=== PATIENT | female | born 1995 | race Caucasian/White ===

== ENCOUNTER 2018-07-17 13:44 | Emergency (ER) | payer SELFPAY ==
[2018-07-17 13:51] VITALS: BP 140/109; PULSE 82; RESP 18; TEMP 36.7; O2SAT 98
--- NOTE | 2018-07-17 14:23 | ED.GENADUL_ITS ---
Discharge Plan Disposition Patient Disposition: HOME Condition: Good Discharge Details Chief Complaint: EarProblem Clinical Impression: URI (upper respiratory infection), Sinusitis ED Provider: Shon Lantigua Home Meds and New Rx's Prescriptions: New azithromycin 250 mg tablet See Label Instructions .ROUTE .COMPLEX Qty: 6 RF: 0 fluticasone [Flonase Allergy Relief] 50 mcg/actuation spray,suspension 1 spray LAILA DAILY Qty: 15.8 RF: 0 sodium chloride [Saline Mist] 0.65 % aerosol,spray 1 spray LAILA Q6H PRN PRN (Reason: dry nasal passages) Qty: 30 RF: 0 diphenhydramine HCl [Benadryl Allergy] 25 mg tablet 25 mg PO Q6H PRN (Reason: allergy symptoms) Qty: 7 RF: 0 albuterol sulfate 90 mcg/actuation HFA aerosol inhaler 1 puff IH Q6H PRN (Reason: shortness of breath or wheezing) Qty: 6.7 RF: 0 Discharge Instructions Instructions: Sinusitis (ED), Upper Respiratory Infection (ED) Additional Instructions: Please take the medication as directed. Please stop smoking. If you notice any worsening of your symptoms, or any new symptoms such as vomiting, diarrhea, fever, chills, shortness of breath, chest pain, numbness, weakness, or fainting , please return immediately to the emergency department for reevaluation. Please follow up with your primary care provider as soon as possible for reassessment and reevaluation. As always, it was a pleasure participating in your medical care today. Medical Decision Making This is a pleasant 23-year-old female who presents with 10 days of upper respiratory infection including congestion, mild cough, slight decrease in hearing in her right ear. Physical exam demonstrates no signs of tympanic membrane perforation however there is some notable fluid behind the tympanic membranes bilaterally, no signs of significant otitis media. Patient does have right-sided maxillary tenderness on percussion, she does smoke. Lung exam is clear, vital signs are normal. With the patient's current symptomatology I feel her symptoms most likely secondary to sinusitis, most likely secondary to initially a viral etiology but more likely a bacterial etiology with this extended course. We will give azithromycin, Decadron here, and then home use of an inhaler, nasal spray, nasal steroid spray, Benadryl. We discussed the importance of smoking cessation as well as red flags which to return. I have extensively reviewed the treatment plan and discharge instructions with the patient and their family. I have addressed all patient concerns at this time. The patient and family was made aware of what symptoms to monitor for that would warrant a return to the emergency department. Discussed the plan with the patient and family, they demonstrate verbal understanding and agreement with our assessment and plan at this time. HPI General Date/Time Provider Initiated Documentation: 07/17/18 14:07 . HPI Narrative: This is a pleasant 23-year-old female who presents with 10 days of congestion, slight decreased hearing in her right ear, cough, runny nose. She smokes regularly. She denies any chest pain or shortness of breath. She denies any productive sputum production. She denies any aggravating or relieving factors. She denies any arm pain numbness tingling fevers or chills. She does admit to some other sick contacts with similar upper respiratory-like symptoms including her significant other. She denies any history of facial surgeries. She denies any history of lung disease. She has no additional complaints at this time. She denies any recent surgeries. She denies any IV or illicit drug use. Related Data Home Medications Medication Instructions Recorded Confirmed albuterol sulfate 1 puff IH Q6H PRN #6.7 gm 07/17/18 azithromycin See Label Instructions .ROUTE 07/17/18 .COMPLEX #6 tab diphenhydramine HCl [Benadryl 25 mg PO Q6H PRN #7 tab 07/17/18 Allergy] fluticasone [Flonase Allergy 1 spray LAILA DAILY #15.8 gm 07/17/18 Relief] sodium chloride [Saline Mist] 1 spray LAILA Q6H PRN PRN #30 ml 07/17/18 Previous Rx's Medication Instructions Recorded albuterol sulfate 1 puff IH Q6H PRN #6.7 gm 07/17/18 azithromycin See Label Instructions .ROUTE 07/17/18 .COMPLEX #6 tab diphenhydramine HCl [Benadryl 25 mg PO Q6H PRN #7 tab 07/17/18 Allergy] fluticasone [Flonase Allergy 1 spray LAILA DAILY #15.8 gm 07/17/18 Relief] sodium chloride [Saline Mist] 1 spray LAILA Q6H PRN PRN #30 ml 07/17/18 Allergies Allergy/AdvReac Type Severity Reaction Status Date / Time No Known Allergies Allergy Unverified 07/17/18 13:53 General Stated Complaint: EarProblem KAYCEE: 4 Review of Systems Review of Systems All systems reviewed & are unremarkable except as noted in HPI and below PFSH Social History Smoking/Tobacco Use Status: Current every day Exam Narrative Exam Narrative: 1.Const: Well-nourished, Well-developed, appearing stated age 2.Eyes: PERRL, no conjunctival injection, and symmetrical lids. 3.ENT: Atraumatic external nose and ears. Moist MM. Neck: Symmetric, trachea midline, No thyromegaly. Notable nasal congestion noted. Panic membranes bilaterally demonstrated mild clear serous fluid, no evidence of purulent fluid or significant bulging. No evidence of otitis externa. Mild tenderness on percussion of the maxillary sinus. Primarily on the right. 4.CVS: +S1/S2, No murmurs or gallops. Peripheral pulses 2+ and equal in all extremities. Brisk capillary refill in all extremities. 5.RESP: Unlabored respiratory effort. Clear to auscultation bilaterally. No wheezes rales or rhonchi 6.GI: Soft, Nontender/Nondistended, No hepatosplenomegaly. No guarding or rebound. 7.MSK: Normocephalic/Atraumatic, Extremities w/o deformity or ttp No cyanosis or clubbing, Normal movement of all extremities 8.Skin: Warm, Dry. No rashes or lesions. 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 Sensation grossly intact, no focal neurologic deficits. 10.Psych: (AAO) x3. Appropriate mood and affect Course Vital Signs Temperature 36.7 C 07/17/18 13:51 Pulse 82 07/17/18 13:51 Respiratory Rate 18 07/17/18 13:51 Blood Pressure 140/109 H 07/17/18 13:51 Pulse Oximetry 98 07/17/18 13:51 Temperature 36.7 C 07/17/18 13:51 Temperature Source Temporal Artery Scan 07/17/18 13:51 Pulse 82 07/17/18 13:51 Respiratory Rate 18 07/17/18 13:51 Respiratory Effort Non-Labored 07/17/18 13:51 Blood Pressure 140/109 H 07/17/18 13:51 Pulse Oximetry 98 07/17/18 13:51 Pain Level 8 07/17/18 13:51
[2018-07-17 14:24] VITALS: BP 112/80; PULSE 72; RESP 18; TEMP 36.8; O2SAT 99
== END 2018-07-17 14:22 | disposition home or self-care (01) ==
PROVIDERS: Emergency Provider Student in an Organized Health Care Education/Training Program; PCP Family Medicine
DX: J06.9 Acute upper respiratory infection, unspecified (principal); J01.90 Acute sinusitis, unspecified; F17.210 Nicotine dependence, cigarettes, uncomplicated
CPT/HCPCS: 99283